=== PATIENT | female | born 1970 | race Caucasian/White ===

== ENCOUNTER 2017-07-08 13:12 | Outpatient (CLI) | payer MEDICARE, MEDICAID ==
[2017-07-08] MEDS ORDERED: Iopamidol 370 76% 100 ML VIAL ONE (13:36)
== END 2017-07-08 13:13 | disposition home or self-care (01) ==
LOC: BICCT 13:12
PROVIDERS: ATTEND Student in an Organized Health Care Education/Training Program
DX: R10.9 Unspecified abdominal pain (principal)
CPT/HCPCS: 74178

== ENCOUNTER 2017-12-05 06:16 | Emergency (ER) | payer MEDICARE, MEDICAID ==
[2017-12-05] MEDS ORDERED: Azithromycin 250 MG TAB ONE (07:38)
[2017-12-05] MEDS ORDERED: Dexamethasone 10 MG/ML VIAL ONE (07:38)
--- NOTE | 2017-12-05 07:56 | RAD ---
2 VIEW CHEST: Date: 12/05/17 HISTORY: Chest pain. Shortness of breath. FINDINGS: Lung gutierrez are clear. Heart and mediastinum appear normal. Osseous structures unremarkable. IMPRESSION: Unremarkable chest. POS: [facility]
== END 2017-12-05 08:03 | disposition home or self-care (01) ==
LOC: ERS 06:16
DX: R04.2 Hemoptysis (principal); D18.03 Hemangioma of intra-abdominal structures; F41.9 Anxiety disorder, unspecified; F31.9 Bipolar disorder, unspecified; F90.9 Attention-deficit hyperactivity disorder, unspecified type; F17.210 Nicotine dependence, cigarettes, uncomplicated; I42.9 Cardiomyopathy, unspecified
CPT/HCPCS: 71046; 93005; 94640; 96372; J1100; J7620

== ENCOUNTER 2017-12-23 18:26 | Emergency (ER) | payer MEDICARE, MEDICAID | END 2017-12-23 18:51 | disposition home or self-care (01) | LOC: ERS 18:26 | DX: Z00.00 Encounter for general adult medical examination without abnormal findings (principal); F41.9 Anxiety disorder, unspecified; F31.9 Bipolar disorder, unspecified; Z87.891 Personal history of nicotine dependence | CPT/HCPCS: 99283 ==

== ENCOUNTER 2018-02-23 13:23 | Emergency (ER) | payer MEDICARE, MEDICAID ==
--- NOTE | 2018-02-23 14:05 | RAD ---
PA AND LATERAL CHEST: Date: 02/23/18 HISTORY: Cough and chest congestion. COMPARISON: 12/05/17. FINDINGS: The cardiac silhouette and pulmonary vasculature are within normal limits. The lungs remain clear. Ch est is overall stable compared to prior exam. IMPRESSION: No acute cardiopulmonary process. POS: [id number]
[2018-02-23] MEDS ORDERED: Dexamethasone 10 MG/ML VIAL ONE (15:00)
== END 2018-02-23 15:17 | disposition home or self-care (01) ==
LOC: ERS 13:23
DX: J42 Unspecified chronic bronchitis (principal); F41.9 Anxiety disorder, unspecified; F31.9 Bipolar disorder, unspecified; Z87.891 Personal history of nicotine dependence
CPT/HCPCS: 71046; 96372; J1100